=== PATIENT | female | born 1995 | race Two or more races ===

== ENCOUNTER 2024-09-14 23:39 | Emergency (ER) | payer MEDICAID, SELFPAY ==
[2024-09-14 23:57] VITALS: BP 147/92; PULSE 99; RESP 18; TEMP 36.9; O2SAT 99
--- NOTE | 2024-09-15 00:03 | PD.EDRME ---
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 Patient fell and hit her stomach several days ago. Patient has IUD. Chief Complaint: Vaginal Bleeding Vital signs: Vital Signs Temperature 98.5 F 09/14/24 23:57 Pulse Rate 99 09/14/24 23:57 Respiratory Rate 18 09/14/24 23:57 Blood Pressure 147/92 H 09/14/24 23:57 Pulse Oximetry (%) 99 09/14/24 23:57 Oxygen Delivery Method Room Air 09/14/24 23:57
[2024-09-15] MEDS: DIAZEPAM 5 MG TABLET PO (00:13)
[2024-09-15 00:42] LABS: Basophils % (Auto) 1 % (0-2.5); Eosinophils # (Auto) 0.3 Thou/mm3 (0.0-0.5); Eosinophils % (Auto) 5 % (0-10); Hematocrit 37.5 % (36.0-46.0); Hemoglobin 12.6 g/dL (12.0-16.0); Immature Granulocytes % (Auto) 0 % (0-0); Lymphocytes # (Auto) 2.2 Thou/mm3 (1.0-4.8); Lymphocytes % (Auto) 39 % (10-50); Mean Corpuscular HGB Conc 33.6 g/dl (31.0-37.0); Mean Corpuscular Hemoglobin 31.4 pg (25.0-35.0); Mean Corpuscular Volume 94 fL (80-100); Monocytes # (Auto) 0.5 Thou/mm3 (0.0-0.8); Monocytes % (Auto) 8 % (0-12); Neutrophils # (Auto) 2.7 Thou/mm3 (1.8-7.7); Neutrophils % (Auto) 48 % (37-80); Nucleated Red Blood Cell % 0 /100 WBC (0); Platelet Count 120 Thou/mm3 (140-440); RDW Standard Deviation 43.8 fL (36.4-46.3); Red Blood Count 4.01 Miln/mm3 (4.00-5.20); White Blood Count 5.7 Thou/mm3 (3.6-11.0)
[2024-09-15 00:43] LABS: Collection Type, Urine Clean Catch
[2024-09-15 00:48] LABS: HCG Qualitative,Urine Negative
[2024-09-15 00:49] LABS: Bilirubin,Urine Negative (Negative); Blood,Urine 3+ (Negative); Clarity,Urine Turbid (Clear/Hazy); Color,Urine Colorless (Lt Yel-Yel); Glucose, Urine Negative (Negative); Ketones,Urine Negative (Negative); Leukocyte Esterase,Urine Negative (Negative); Nitrite,Urine Negative (Negative); Protein,Urine Negative (Neg - Trace); RBC,Urine 2 /hpf (0-3); Specific Gravity,Urine 1.004 (1.001-1.035); Squamous Epithelial Cell,Urine 7 /hpf (0-5); Urobilinogen,Urine Negative mg/dL (0.0-1.0); WBC,Urine < 1 /hpf (0-5)
[2024-09-15 00:56] LABS: Amphetamine/Methamp Scrn,U Negative (Negative); Barbiturate Screen,Urine Negative (Negative); Benzodiazepines Screen,Urine Negative (Negative); Benzoylecgonine Screen, Ur Negative (Negative); Fentanyl Screen,Urine Negative (Negative); Opiate Screen,Urine Negative (Negative); THC Screen,Urine Negative (Negative)
[2024-09-15 01:00] LABS: Alanine Aminotransferase 32 U/L (10-49); Albumin, Serum 4.6 gm/dL (3.5-5.0); Albumin/Globulin Ratio 1.3 (1.2-2.2); Alkaline Phosphatase 99 U/L (46-116); Anion Gap 7 (7-16); Aspartate Amino Transferase 37 U/L (0-34); BUN/Creatinine Ratio 11 Ratio (12-20); Bilirubin,Total 0.8 mg/dL (0.3-1.2); Blood Urea Nitrogen 8 mg/dL (9-23); Calcium 9.9 mg/dL (8.3-10.6); Calcium (Corrected) 9.9 mg/dL (8.5-10.1); Chloride 104 mMol/L (98-107); Creatinine (Component) 0.7 mg/dL (0.6-1.3); Globulin 3.5 gm/dL (2.3-3.5); Glucose 87 mg/dL (74-106); Osmolality,Calculated 272 (275-295); Potassium 3.4 mMol/L (3.4-5.1); Sodium 138 mMol/L (136-145); Total Protein 8.1 gm/dL (5.7-8.2); eGFR > 60 See Note
--- NOTE | 2024-09-15 02:28 | PC.NURSE ---
I BEEN INFORMING PT THAT SHE IS WAITING FOR US AND SHE WILL NEED TO GO TO THE ROOM.
--- NOTE | 2024-09-15 02:31 | PC.NURSE ---
PT IS TALKING TO SOMEONE ON THE PHONE. SHE WANTS ME TO TALK TO THE PERSON ON THE PHONE , I INFORMED HER THAT I CNT AND I INFORMED HER AGAIN THAT SHE IS WAITING FOR AN ULTRASOUND.
[2024-09-15 02:41] VITALS: BP 154/108; PULSE 70; RESP 17; TEMP 36.9; O2SAT 99
--- NOTE | 2024-09-15 02:47 | XR_ITS ---
Examination: Pelvic ultrasound, transabdominal, complete Technique: Transabdominal ultrasound of the pelvis performed using grayscale imaging Date and time of exam: September 15, 2024 0256 hrs. Comparison June 03, 2024 Indications: Pelvic pain beginning 2 days ago with vaginal bleeding today, post removal dermoid tumor 2 months ago Findings: Uterus 6.8 x 2.9 x 4.9 cm Intrauterine device poorly visualized No uterine mass or intrauterine gestation Right ovary 5.3 x 2.9 x 3.7 cm arterial flow small follicles Left ovary absent Impression: No uterine mass or intrauterine gestation Absent left ovary
--- NOTE | 2024-09-15 04:05 | PRELIM_ITS ---
Pelvic ultrasound (transabdominal). September 15, 2024 0256 hours Clinical history: Pelvic pain 2 days . Vaginal bleeding today.Findings:The patient declined transvaginal examination.The uterus is normal in size measuring 6.8 x 2.9 x 4.9 cm. An intrauterine contraceptive device is seen in place. The rig ht ovary measures 5.3 x 2.9 x 3.7 cm and demonstrates multiple follicles. The right ovary demonstrate s color flow and spectral waveforms on Doppler evaluation. The left ovary is surgically absent. There is no adnexal mass.There is no free fluid on the submitted images.Impression:Uterus and right ovary are unremarkable.Other findings as described above. Report Electronically Signed By: Roque Dubon 1 11/16/2023 4:05:04 AM [EST]
--- NOTE | 2024-09-15 04:06 | PD.EDVAGBL ---
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 Patient fell and hit her stomach several days ago. Patient has IUD. ----- Dr. Kate's Main ED Evaluation: 29yo female with a recent resection of an ovarian tumor in June of this year presents to the ED for a chief complaint of abdominal pain. Patient states she fell a few days ago and hit her stomach, reporting she has since had abdominal pain while at work yesterday, and vaginal bleeding last night. She was concerned due to recently having a procedure done, so she came in for evaluation. She denies any N/V or any other associated symptoms. No known allergies. Patient has an IUD. Related Data Allergies Allergy/AdvReac Type Severity Reaction Status Date / Time No Known Allergies Allergy Verified 09/14/24 23:42 Review of Systems Review of Systems Systems Reviewed: All systems reviewed, normal except as documented Past Medical History Past Medical History NEUROLOGIC: Positive Seizures; Negative Neurological Disorders CARDIAC: Negative Cardiac Disorders or Congestive Heart Failure RESPIRATORY: Positive Asthma; Negative Chronic Obstructive Pulmonary Disease (COPD) GASTROINTESTINAL: Negative Gastrointestinal Disorders or Hepatitis GENITOURINARY: Negative Genitourinary Disorders or Renal Disease REPRODUCTIVE: Positive Previous Pregnancies MUSCULOSKELETAL: Negative Musculoskeletal Disorders ENDOCRINE: Negative Endocrine Disorders, Diabetes Mellitus Type 1 or Diabetes Mellitus Type 2 HEMATOLOGIC: Positive Blood Disorders and Anemia; Negative Sickle Cell Disease OTHER HISTORY: Negative Hospitalization, Autoimmune Disease, Shingles, Blood Transfusions, Blood Transfusion Reaction, Anesthesia Reactions or Cancer Family History FAMILY HISTORY: Negative Family Psychiatric Problems, Family Respiratory Disorders, Family Cardiac Disorders, Family Gastrointestinal Problems, Family Cancer, Family Surgery or Family Anesthesia Reaction Surgical History SURGICAL: Positive Section (x1) Social History SMOKING STATUS: Never smoker ED Exam General Limitations: Present no limitations General appearance: Present alert and in no apparent distress Head Head exam: Present atraumatic Eye Eye exam: Present normal appearance, PERRL and EOMI ENT ENT exam: Present normal exam, normal oropharynx and mucous membranes moist Neck Neck exam: Present normal inspection, full ROM and trachea midline Chest Chest inspection: Present normal inspection and symmetric chest wall rise Respiratory Respiratory exam: Present normal lung sounds bilaterally Cardiovascular Cardiovascular exam: Present regular rate, normal rhythm and normal heart sounds Abdominal Exam Abdominal exam: Present soft, normal bowel sounds and scar (to the right abdomen); Absent tenderness Extremities Exam Extremities exam: Present normal inspection and full ROM Back Exam Back exam: Present normal inspection and full ROM; Absent CVA tenderness (R) or CVA tenderness (L) Neurological Exam Neurological exam: Present alert, oriented X3 and CN II-XII intact Psychiatric Psychiatric exam: Present normal affect and normal mood Skin Skin exam: Present warm, dry, intact and normal color Course Quality Measures none Orders Category Date Time Status US pelvic complete Stat Exams 09/15/24 02:47 Taken CBC Stat Lab 09/15/24 00:15 Completed CMP [Comprehensive Metabolic Panel] Stat Lab 09/15/24 00:15 Completed Drug Screen,Urine Stat Lab 09/15/24 00:11 Completed HCG Qualitative,Urine Stat Lab 09/15/24 00:11 Completed UA [Urinalysis] Stat Lab 09/15/24 00:11 Completed Diazepam [Valium] Med 09/15/24 00:03 Discontinued 5 mg PO X1 ONE Vital Signs Vital signs: Vital Signs Temperature 98.5 F 09/14/24 23:57 Pulse Rate 99 09/14/24 23:57 Respiratory Rate 18 09/14/24 23:57 Blood Pressure 147/92 H 09/14/24 23:57 Pulse Oximetry (%) 99 09/14/24 23:57 Oxygen Delivery Method Room Air 09/14/24 23:57 Pulse ox is 99% on room air, which is normal according to my interpretation. Vaginal Bleeding Patient data External records reviewed:: [facility] previous records (Per chart review, patient was seen here on 07/04/24 for pelvic pain.) Clinical information provided by:: patient Social determinants that could affect healthcare access:: none Patient has the following chronic illnesses:: seizures, asthma, anemia How is presenting disease/condition affected by chronic disease/condition?: uneffected by Evaluation data The following diagnostics were reviewed and interpreted by me:: lab results and radiology exam(s) Lab and/or radiology exams considered but not ordered:: none Interpretation Summary: CBC is normal, CMP is normal, UDS is negative, according to my interpretation. ---- I have personally reviewed the radiology data and agree with the radiologist's interpretation below: Telerad Preliminary Report Draft Patient: MIKAELA KASPER. Record#: [id number] Birthdate: 1995 Age/Sex: 29 / F Location: [facility] Attending Dr: Ordering Physician: Date of Service: Procedure(s): Accession Number(s): cc: ~ Pelvic ultrasound (transabdominal). September 15, 2024 0256 hours Clinical history: Pelvic pain 2 days. Vaginal bleeding today. Findings: The patient declined transvaginal examination. The uterus is normal in size measuring 6.8 x 2.9 x 4.9 cm. An intrauterine contraceptive device is seen in place. The right ovary measures 5.3 x 2.9 x 3.7 cm and demonstrates multiple follicles. The right ovary demonstrates color flow and spectral waveforms on Doppler evaluation. The left ovary is surgically absent. There is no adnexal mass. There is no free fluid on the submitted images. Impression: Uterus and right ovary are unremarkable. Other findings as described above. Report Electronically Signed By: Roque Dubon 09/15/2024 4:05:04 AM [EST] Medications / Prescriptions Medications or Prescriptions considered but not ordered:: none Medication administrations:: Medication Administration History Discontinued Medications Diazepam (Diazepam 5 Mg Tablet) 5 mg PO X1 ONE Stop: 09/15/24 00:04 Last Admin: 09/15/24 00:13 Dose: 5 mg Documented By: OA see above Consultations Consultation(s) initiated? (list below): No Diagnosis Vaginal Bleeding Differential Diagnosis: other (abrasion, spasm, musculoskeletal) Most likely diagnosis given after review of the tests above:: see below Admission Indicated Admission indicated?: not indicated Admission Request Was there a request for admission?: No Disposition Plan Disposition Plan: Discharge Discharge Attestation Discharge Attestation: The patient and all family members were given an opportunity to ask questions and understood the discharge instructions. Discharge instructions specifically effects, indications for sooner follow up or return to the emergency department, and the expected course of current diagnosis. Patient condition: Stable Discharge Plan Plan Patient Disposition: HOME (Self Care) Patient condition on transfer: Stable Prescriptions/Referrals Referrals: Mamadou Carrillo MD [Primary Care Provider] - In 1 week Problem List Clinical Impression: Vaginal bleeding Patient/Caregiver Discharge Instructions Education Materials: Understanding Uterine Bleeding Additional Instructions: You can take [id number] Tylenol 650 mg 3 times a day as needed for the next 2 to 3 days. Return for any worsening symptoms, or any other concerns. Print Language: Setswana Stand Alone Forms: [employer] Award Info., Patient Portal Info Letter
[2024-09-15 04:09] VITALS: BP 145/102; PULSE 66; RESP 16; TEMP 36.8; O2SAT 100
[2024-09-15 04:14] VITALS: BP 137/96; PULSE 81; RESP 18; TEMP 36.7; O2SAT 98
[2024-09-15 04:32] VITALS: BP 137/96; PULSE 81; RESP 16; TEMP 36.7; O2SAT 98
== END 2024-09-15 04:31 | disposition home or self-care (01) ==
PROVIDERS: Physician Assistant; Emergency Provider Emergency Medicine; PCP Family Medicine
DX: N93.9 Abnormal uterine and vaginal bleeding, unspecified (principal); R10.2 Pelvic and perineal pain
CPT/HCPCS: 36415; 76856; 80053; 80307; 81001; 81025; 85025; 99284; A9270

== ENCOUNTER 2025-09-05 17:09 | Emergency (ER) | payer MEDICAID, SELFPAY ==
[2025-09-05 17:14] VITALS: BP 158/80; PULSE 114; RESP 18; TEMP 36.7; O2SAT 98; BMI 36.6
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
[2025-09-05 18:15] LABS: Basophils # (Auto) 0.1 Thou/mm3 (0.0-0.2); Basophils % (Auto) 1 % (0-2.5); Eosinophils # (Auto) 0.1 Thou/mm3 (0.0-0.5); Eosinophils % (Auto) 2 % (0-10); Hematocrit 40.3 % (36.0-46.0); Hemoglobin 13.7 g/dL (12.0-16.0); Immature Granulocytes Auto 0.01 Thou/mm3 (0.00-0.00); Lymphocytes # (Auto) 1.6 Thou/mm3 (1.0-4.8); Lymphocytes % (Auto) 32 % (10-50); Mean Corpuscular HGB Conc 34.0 g/dl (31.0-37.0); Mean Corpuscular Hemoglobin 33.3 pg (25.0-35.0); Mean Corpuscular Volume 98 fL (80-100); Monocytes # (Auto) 0.3 Thou/mm3 (0.0-0.8); Monocytes % (Auto) 6 % (0-12); Neutrophils # (Auto) 3.0 Thou/mm3 (1.8-7.7); Neutrophils % (Auto) 60 % (37-80); Nucleated Red Blood Cell # 0.00 Thou/mm3 (0.00-0.00); Nucleated Red Blood Cell % 0 /100 WBC (0); Platelet Count 169 Thou/mm3 (140-440); RDW Standard Deviation 47.8 fL (36.4-46.3); Red Blood Count 4.12 Miln/mm3 (4.00-5.20); White Blood Count 5.0 Thou/mm3 (3.6-11.0)
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
[2025-09-05 18:31] LABS: Alanine Aminotransferase 115 U/L (10-49); Albumin, Serum 4.8 gm/dL (3.5-5.0); Albumin/Globulin Ratio 1.5 (1.2-2.2); Alkaline Phosphatase 95 U/L (46-116); Anion Gap 15 (7-16); Aspartate Amino Transferase 166 U/L (0-34); BUN/Creatinine Ratio 8 Ratio (12-20); Bilirubin,Total 0.7 mg/dL (0.3-1.2); Blood Urea Nitrogen 5 mg/dL (9-23); Calcium 9.2 mg/dL (8.3-10.6); Calcium (Corrected) 9.2 mg/dL (8.5-10.1); Carbon Dioxide 25.3 mMol/L (20.0-31.0); Chloride 106 mMol/L (98-107); Creatinine (Component) 0.6 mg/dL (0.6-1.3); Estimated Creatinine Clearance 141.0 mL/min (>60); Globulin 3.2 gm/dL (2.3-3.5); Glucose 92 mg/dL (74-106); Osmolality,Calculated 287 (275-295); Potassium 3.8 mMol/L (3.4-5.1); Sodium 146 mMol/L (136-145); Total Protein 8.0 gm/dL (5.7-8.2); eGFR > 60 See Note
[2025-09-05 19:54] LABS: Collection Type, Urine Clean Catch
[2025-09-05 20:06] LABS: HCG Qualitative,Urine Negative
[2025-09-05 20:09] LABS: Bilirubin,Urine Negative (Negative); Blood,Urine Negative (Negative); Clarity,Urine Clear (Clear/Hazy); Color,Urine Colorless (Lt Yel-Yel); Glucose, Urine Negative (Negative); Ketones,Urine Negative (Negative); Leukocyte Esterase,Urine Negative (Negative); Nitrite,Urine Negative (Negative); PH,Urine 6.5 (5.0-7.0); Protein,Urine Negative (Neg - Trace); RBC,Urine < 1 /hpf (0-3); Specific Gravity,Urine 1.006 (1.001-1.035); Squamous Epithelial Cell,Urine 2 /hpf (0-5); Urobilinogen,Urine Negative mg/dL (0.0-1.0); WBC,Urine 1 /hpf (0-5)
[2025-09-05 20:12] LABS: Amphetamine/Methamp Scrn,U Negative (Negative); Barbiturate Screen,Urine Negative (Negative); Benzodiazepines Screen,Urine Negative (Negative); Benzoylecgonine Screen, Ur Negative (Negative); Fentanyl Screen,Urine Negative (Negative); Opiate Screen,Urine Negative (Negative); THC Screen,Urine Negative (Negative)
[2025-09-05 21:31] LABS: Alcohol, Blood Medical 384.4 mg/dL (0-10.0)
--- NOTE | 2025-09-05 23:01 | PD.EDADDENDU ---
Emergency Room Addendum Addendum Narrative: 2300: Care assumed from Tyrone Salazar NP. Past medical, surgical, social and family history reviewed. Vitals and home medications reviewed. Results and treatment plan discussed. I will assume the care of the patient at this time and will follow the patient. Please refer to the emergency department record for history and examination from initial visit.
[2025-09-06 06:42] VITALS: BP 133/87; PULSE 98; RESP 17; TEMP 36.8; O2SAT 98
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
--- NOTE | 2025-09-06 07:45 | PC.NURSE ---
Pt currently vomiting, aware and is currently speaking to pt
[2025-09-06] MEDS: ONDANSETRON ODT 4 MG TABRAP PO (07:57)
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
[2025-09-06 08:19] VITALS: BP 132/95; PULSE 109; RESP 19; TEMP 37.2; O2SAT 98
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
[2025-09-06 10:11] VITALS: BP 136/92; PULSE 101; RESP 19; TEMP 36.9; O2SAT 97
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
--- NOTE | 2025-09-06 10:44 | PC.SS ---
Addendum entered by Sonam Frankel 09/06/25 13:11: SS follow up note SS set up Uber transportation for patient to discharge to mother's residents. Addendum entered by Sonam Frankel 09/06/25 11:12: SS follow up note; SS set up appointment for patient with [facility]-Intake appointment Sep 1at at 8AM. Assessment appointment Sep 12 at 2PM. [facility] provided the patient with AOD resources, Community resources and Mental Health Original Note: SS follow up note; SS contacted [facility] and made report to Claritza Coburn. SS also Faxed [facility] report via Fax.
[2025-09-06] MEDS: RINGERS LACTATED 1000 ML 1,000 ML 999 ML IV (11:34)
[2025-09-06 12:38] VITALS: BP 143/93; PULSE 98; RESP 19; TEMP 37.2; O2SAT 95
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
== END 2025-09-06 13:14 | disposition home or self-care (01) ==
PROVIDERS: Registered Nurse General Practice; Emergency Provider Emergency Medicine
DX: R45.851 Suicidal ideations (principal); F10.129 Alcohol abuse with intoxication, unspecified; Y04.0XXA Assault by unarmed brawl or fight, initial encounter; Y90.9 Presence of alcohol in blood, level not specified
CPT/HCPCS: 36415; 80053; 80307; 80320; 81001; 81025; 85025; 96127; 96372; 99283; J1200; J1630; J7120; Q0162; A9270; G0480